=== PATIENT | female | born 1990 | race Caucasian/White ===

== ENCOUNTER 2018-12-05 12:45 | Emergency (ER) | payer MEDICAID ==
[~2018-12-05] VITALS: Ht 149.9 cm; Wt 63.0 kg
[~2018-12-05 12:45] MED LIST: ONDA4TAB6 PO; ONDA8TAB9 PO; PHEN-824 PO
[2018-12-05 13:32] LABS: BASOPHILS # (AUTO) 0.1 X10'3 (0-0.2); BASOPHILS % (AUTO) 0.8 % (0-1); EOSINOPHILS # (AUTO) 0.4 X10'3 (0-0.9); EOSINOPHILS % (AUTO) 2.6 % (0-6); HEMATOCRIT 29.7 % (35.0-45.0); HEMOGLOBIN 9.4 g/dl (12.0-16.0); LYMPHOCYTES # (AUTO) 2.9 X10'3 (1.1-4.8); LYMPHOCYTES % (AUTO) 19.9 % (21-51); MEAN CORPUSCULAR HEMOGLOBIN 24.9 PG (27.0-31.0); MEAN CORPUSCULAR HGB CONC 31.6 g/dL (33.0-36.5); MEAN CORPUSCULAR VOLUME 78.8 FL (78-98); MEAN PLATELET VOLUME 7.3 FL (7.4-10.4); MONOCYTES # (AUTO) 1.4 X10'3 (0-0.9); MONOCYTES % (AUTO) 9.8 % (2-12); NEUTROPHILS # (AUTO) 9.7 X10'3 (1.8-7.7); NEUTROPHILS % (AUTO) 66.9 % (42-75); PLATELET COUNT 591 X10'3 (140-440); RED BLOOD COUNT 3.77 X10'6 (4.20-5.60); RED CELL DISTRIBUTION WIDTH 18.2 % (11.5-14.5); WHITE BLOOD COUNT 14.5 X10'3 (4.5-11.0)
[2018-12-05 13:53] LABS: INR 2.8 INR; PARTIAL THROMBOPLASTIN TIME 53 SECONDS (22-32); PROTHROMBIN TIME 26.6 SECONDS (9.0-12.0)
--- NOTE | 2018-12-05 14:06 | NUR ---
PATIENT LWOBS. CALLED PATIENT TO RETURN TO ER DUE TO ABNORMAL LABS. NO ANSWER. CALLED PATIENTS MOTHER WHO STATES SHE THINKS SHE IS STAYING AT THE [facility]IS[facility] [place] [facility]. PATIENTS MOTHER STATED SHE WOULD TRY TO FIND HER.
--- NOTE | 2018-12-05 16:06 | NUR ---
PATIENT STILL C/O 8/10 CHEST PAIN,OPPEZZO AWARE,PROVIDER OFFERED TYLENOL BUT PATIENT REFUSED.
[2018-12-05 16:18] VITALS: BP 102/78
[2018-12-05 16:23] LABS: URINE HCG NEGATIVE (NEG)
[2018-12-05 16:30] LABS: CLARITY,URINE SLIGHTLY CLOUDY (Clear); COLOR,URINE YELLOW (Yellow); GLUCOSE, URINE NEGATIVE (Neg); KETONES,URINE NEGATIVE (Neg); LEUKOCYTE ESTERASE ,URINE NEGATIVE (Neg); NITRITES, URINE NEGATIVE (Neg); OCCULT BLOOD,URINE NEGATIVE (Neg); PH,URINE 5.5 (4.8-8.0); PROTEIN,URINE NEGATIVE (Neg); UROBILINOGEN,URINE 0.2 E.U/dL (0.2-1.0)
[2018-12-05 16:33] LABS: UA COLLECTION TYPE CLN CATCH MIDSTREAM
[2018-12-05 16:38] LABS: BACTERIA,URINE FEW /HPF (Neg); MUCUS STRANDS FEW /LPF (Neg); RBC,URINE 0-2 /HPF (0-2); SQUAMOUS EPITHELIAL CELL,UR MODERATE /LPF (FEW); TRICHOMONAS,URINE FEW /HPF (NEGATIVE)
== END 2018-12-05 16:21 | disposition home or self-care (01) ==
LOC: ER 12:45
DX: D72.829 Elevated white blood cell count, unspecified (principal); R07.89 Other chest pain; R06.02 Shortness of breath; K21.9 Gastro-esophageal reflux disease without esophagitis; F12.90 Cannabis use, unspecified, uncomplicated; F15.90 Other stimulant use, unspecified, uncomplicated; Z86.73 Personal history of transient ischemic attack (TIA), and cerebral infarction without residual deficits
CPT/HCPCS: 36415; 71045; 81001; 81025; 83605; 83880; 84145; 84484; 85025; 85610; 85730; 87040; 87088; 93005; 99284

== ENCOUNTER 2019-12-27 01:33 | Emergency (ER) | payer MEDICAID ==
[~2019-12-27] VITALS: Ht 149.9 cm; Wt 65.0 kg
[2019-12-27 01:33] VITALS: BP 141/95
--- NOTE | 2019-12-27 01:38 | NUR ---
Thom, shawapro,metoprolol, coumadin for mitral valve replacement 2019
[2019-12-27] MEDS ORDERED: AMOX500C2 PO (02:11)
[2019-12-27] MEDS ORDERED: HYDR-4383 PO (02:12)
[2019-12-27] MEDS ORDERED: ketorolac trometh inj. 60 MG/2 ML VIAL IM ONE (02:15)
== END 2019-12-27 02:02 | disposition home or self-care (01) ==
LOC: ER 01:33
DX: L89.819 Pressure ulcer of head, unspecified stage (principal); R20.2 Paresthesia of skin; R53.1 Weakness; K21.9 Gastro-esophageal reflux disease without esophagitis; F12.90 Cannabis use, unspecified, uncomplicated; F15.90 Other stimulant use, unspecified, uncomplicated; F11.90 Opioid use, unspecified, uncomplicated; Z86.73 Personal history of transient ischemic attack (TIA), and cerebral infarction without residual deficits; Z72.89 Other problems related to lifestyle; Z79.899 Other long term (current) drug therapy
CPT/HCPCS: 99282

== ENCOUNTER 2020-01-12 00:07 | Emergency (ER) | payer MEDICAID ==
[~2020-01-12] VITALS: Ht 149.9 cm; Wt 68.2 kg
[2020-01-12 00:31] LABS: CLARITY,URINE CLOUDY (Clear); COLOR,URINE AMBER (Yellow); GLUCOSE, URINE NEGATIVE (Neg); KETONES,URINE 15 mg/dl (Neg); LEUKOCYTE ESTERASE ,URINE TRACE (Neg); NITRITES, URINE NEGATIVE (Neg); OCCULT BLOOD,URINE LARGE (Neg); PH,URINE 6.5 (4.8-8.0); PROTEIN,URINE 100 mg/dl (Neg); URINE HCG NEGATIVE (NEG)
[2020-01-12 00:38] LABS: UA COLLECTION TYPE CLN CATCH MIDSTREAM
[2020-01-12 00:41] LABS: BACTERIA,URINE NONE SEEN /HPF (Neg); RBC,URINE TNTC /HPF (0-2); WBC,URINE 0-4 /HPF (0-4)
[2020-01-12 00:42] LABS: SQUAMOUS EPITHELIAL CELL,UR FEW /LPF (FEW)
[2020-01-12 01:00] LABS: EOSINOPHILS # (AUTO) 0.1 X10'3 (0-0.9); MEAN CORPUSCULAR VOLUME 82.3 FL (78-98); MONOCYTES # (AUTO) 1.7 X10'3 (0-0.9); RED CELL DISTRIBUTION WIDTH 18.5 % (11.5-14.5)
[2020-01-12 01:01] LABS: BASOPHILS % (AUTO) 0.2 % (0-1); EOSINOPHILS % (AUTO) 1.2 % (0-6); HEMOGLOBIN 10.5 g/dl (12.0-16.0); LYMPHOCYTES # (AUTO) 0.9 X10'3 (1.1-4.8); LYMPHOCYTES % (AUTO) 8.6 % (21-51); MEAN CORPUSCULAR HGB CONC 32.8 g/dL (33.0-36.5); MEAN PLATELET VOLUME 8.9 FL (7.4-10.4); MONOCYTES % (AUTO) 15.9 % (2-12); NEUTROPHILS % (AUTO) 74.1 % (42-75); PLATELET COUNT 271 X10'3 (140-440); RED BLOOD COUNT 3.89 X10'6 (4.20-5.60); WHITE BLOOD COUNT 10.7 X10'3 (4.5-11.0)
[2020-01-12 01:12] LABS: ALANINE AMINOTRANSFERASE 9 U/L (12-78); ALBUMIN 2.6 G/DL (3.4-5.0); ALBUMIN/GLOBULIN RATIO 0.7 (1.1-1.5); ALKALINE PHOSPHATASE 82 IU/L (46-116); ANION GAP 5 (8-16); ASPARTATE AMINO TRANSFERASE 16 U/L (10-37); BILIRUBIN,TOTAL 0.3 MG/DL (0.1-1.0); BLOOD UREA NITROGEN 20 MG/DL (7-18); BUN/CREATININE RATIO 16.8 (6.6-38.0); CALCIUM 8.3 MG/DL (8.5-10.1); CHLORIDE 101 MMOL/L (99-107); CREATININE 1.19 MG/DL (0.40-0.90); GLUCOSE 99 MG/DL (70-104); POTASSIUM 3.9 MMOL/L (3.5-5.1); SODIUM 131 MMOL/L (135-145); TOTAL CARBON DIOXIDE 25.3 MMOL/L (24-32); TOTAL PROTEIN 6.2 G/DL (6.4-8.2); eGFR 53 ML/MIN
[2020-01-12 01:25] LABS: TOTAL CELLS COUNTED 100
[2020-01-12 01:28] LABS: ANISOCYTOSIS 1+; ELLIPTOCYTES FEW; PLATELET ESTIMATE NORMAL
[2020-01-12 02:03] LABS: PARTIAL THROMBOPLASTIN TIME 112 SECONDS (22-32)
[2020-01-12] MEDS ORDERED: phytonadione 10 MG/1 ML amp SQ ONE (02:15)
[2020-01-12 02:30] VITALS: BP 102/55
[2020-01-12] MEDS ORDERED: ACET-3068 PO (18:29)
[2020-01-12] MEDS ORDERED: CEPH500C5 PO (18:30)
== END 2020-01-12 02:40 | disposition home or self-care (01) ==
LOC: ER 00:07
DX: R79.1 Abnormal coagulation profile (principal); R31.9 Hematuria, unspecified; G43.909 Migraine, unspecified, not intractable, without status migrainosus; F17.200 Nicotine dependence, unspecified, uncomplicated; F12.90 Cannabis use, unspecified, uncomplicated; K21.9 Gastro-esophageal reflux disease without esophagitis; Z86.73 Personal history of transient ischemic attack (TIA), and cerebral infarction without residual deficits; Z72.89 Other problems related to lifestyle; Z79.899 Other long term (current) drug therapy
CPT/HCPCS: 36415; 70450; 80053; 81001; 81025; 85025; 85610; 85730; 87088; 96372; 99284; J3430

== ENCOUNTER 2020-01-12 12:25 | Emergency (ER) | payer MEDICAID ==
[~2020-01-12] VITALS: Ht 149.9 cm; Wt 65.4 kg
[2020-01-12 13:18] LABS: BASOPHILS % (AUTO) 0.4 % (0-1); EOSINOPHILS # (AUTO) 0.1 X10'3 (0-0.9); EOSINOPHILS % (AUTO) 0.9 % (0-6); HEMATOCRIT 31.5 % (35.0-45.0); HEMOGLOBIN 10.3 g/dl (12.0-16.0); LYMPHOCYTES # (AUTO) 0.8 X10'3 (1.1-4.8); LYMPHOCYTES % (AUTO) 7.1 % (21-51); MEAN CORPUSCULAR HEMOGLOBIN 26.7 PG (27.0-31.0); MEAN CORPUSCULAR HGB CONC 32.7 g/dL (33.0-36.5); MEAN CORPUSCULAR VOLUME 81.6 FL (78-98); MEAN PLATELET VOLUME 8.9 FL (7.4-10.4); MONOCYTES # (AUTO) 1.4 X10'3 (0-0.9); MONOCYTES % (AUTO) 13.2 % (2-12); NEUTROPHILS # (AUTO) 8.3 X10'3 (1.8-7.7); NEUTROPHILS % (AUTO) 78.4 % (42-75); PLATELET COUNT 293 X10'3 (140-440); RED BLOOD COUNT 3.85 X10'6 (4.20-5.60); RED CELL DISTRIBUTION WIDTH 18.7 % (11.5-14.5); WHITE BLOOD COUNT 10.6 X10'3 (4.5-11.0)
[2020-01-12 13:33] LABS: ALANINE AMINOTRANSFERASE 7 U/L (12-78); ALBUMIN 2.3 G/DL (3.4-5.0); ALBUMIN/GLOBULIN RATIO 0.6 (1.1-1.5); ALKALINE PHOSPHATASE 89 IU/L (46-116); ANION GAP 6 (8-16); ASPARTATE AMINO TRANSFERASE 13 U/L (10-37); BILIRUBIN,TOTAL 0.2 MG/DL (0.1-1.0); BLOOD UREA NITROGEN 15 MG/DL (7-18); BUN/CREATININE RATIO 19.2 (6.6-38.0); CALCIUM 7.9 MG/DL (8.5-10.1); CHLORIDE 102 MMOL/L (99-107); CREATININE 0.78 MG/DL (0.40-0.90); GLUCOSE 120 MG/DL (70-104); POTASSIUM 3.9 MMOL/L (3.5-5.1); SODIUM 134 MMOL/L (135-145); TOTAL CARBON DIOXIDE 25.7 MMOL/L (24-32); eGFR 87 ML/MIN
[2020-01-12 13:56] LABS: ANISOCYTOSIS 2+; ELLIPTOCYTES FEW; PLATELET ESTIMATE NORMAL; SCHISTOCYTES FEW; TOTAL CELLS COUNTED 100
[2020-01-12] MEDS ORDERED: phytonadione 10 MG/1 ML amp PO ONE (16:15)
--- NOTE | 2020-01-12 16:28 | NUR ---
creative technologist at bedside, patient asleep, no signs of distress noted. Addendum: 01/12/20 at 1628 by LARISA exercise equipment repair technician.
[2020-01-12] MEDS: HYDROcodone/acetaminophen 10/325mg tab PO ONE ×2 (16:29→16:30)
[2020-01-12] MEDS ORDERED: ACET-3068 PO (18:29)
[2020-01-12] MEDS ORDERED: CEPH500C5 PO (18:30)
[2020-01-12] MEDS ORDERED: HYDROcodone/acetaminophen 10/325mg tab PO ONE (18:35)
--- NOTE | 2020-01-12 18:42 | NUR ---
Note artie in EDM - 01/12/[address] tsai updated that pts accucheck is 62, verbal received for 1 amp of d50 x1 now. last accuehcke at 1744 = 72.
[2020-01-12] MEDS ORDERED: dextrose 50%-water 50ml dispensing syringe IV ONE (18:45)
[2020-01-12 19:47] VITALS: BP 101/62
== END 2020-01-12 19:45 | disposition home or self-care (01) ==
LOC: ER 12:26
DX: S50.11XA Contusion of right forearm, initial encounter (principal); D68.9 Coagulation defect, unspecified; R79.9 Abnormal finding of blood chemistry, unspecified; M25.512 Pain in left shoulder; G43.909 Migraine, unspecified, not intractable, without status migrainosus; I25.10 Atherosclerotic heart disease of native coronary artery without angina pectoris; I25.2 Old myocardial infarction; J44.9 Chronic obstructive pulmonary disease, unspecified; K21.9 Gastro-esophageal reflux disease without esophagitis; F17.200 Nicotine dependence, unspecified, uncomplicated; F12.90 Cannabis use, unspecified, uncomplicated; F11.90 Opioid use, unspecified, uncomplicated; Z86.73 Personal history of transient ischemic attack (TIA), and cerebral infarction without residual deficits; Z79.899 Other long term (current) drug therapy; X58.XXXA Exposure to other specified factors, initial encounter; Y93.89 Activity, other specified; Y92.89 Other specified places as the place of occurrence of the external cause; Y99.8 Other external cause status
CPT/HCPCS: 36415; 73090; 80053; 85025; 85610; 93971; 99285; J3430

== ENCOUNTER 2020-04-10 06:35 | Emergency (ER) | payer MEDICAID ==
[~2020-04-10] VITALS: Ht 149.9 cm; Wt 67.7 kg
[~2020-04-10 06:35] MED LIST changes: +CEPH500C5 PO
[2020-04-10 07:33] VITALS: BP 133/79
== END 2020-04-10 07:34 | disposition home or self-care (01) ==
LOC: ER 06:36
DX: F15.90 Other stimulant use, unspecified, uncomplicated (principal); F11.90 Opioid use, unspecified, uncomplicated; G43.909 Migraine, unspecified, not intractable, without status migrainosus; I25.10 Atherosclerotic heart disease of native coronary artery without angina pectoris; I25.2 Old myocardial infarction; J44.9 Chronic obstructive pulmonary disease, unspecified; K21.9 Gastro-esophageal reflux disease without esophagitis; F12.90 Cannabis use, unspecified, uncomplicated; Z86.73 Personal history of transient ischemic attack (TIA), and cerebral infarction without residual deficits; Z79.899 Other long term (current) drug therapy
CPT/HCPCS: 99281

== ENCOUNTER 2020-05-08 18:32 | Emergency (ER) | payer MEDICAID ==
[~2020-05-08] VITALS: Ht 149.9 cm; Wt 63.6 kg
[2020-05-08 19:06] LABS: BASOPHILS # (AUTO) 0.1 X10'3 (0-0.2); BASOPHILS % (AUTO) 0.4 % (0-1); EOSINOPHILS # (AUTO) 0.2 X10'3 (0-0.9); EOSINOPHILS % (AUTO) 0.9 % (0-6); HEMATOCRIT 40.4 % (35.0-45.0); HEMOGLOBIN 13.1 g/dl (12.0-16.0); LYMPHOCYTES # (AUTO) 2.1 X10'3 (1.1-4.8); LYMPHOCYTES % (AUTO) 10.8 % (21-51); MEAN CORPUSCULAR HEMOGLOBIN 24.4 PG (27.0-31.0); MEAN CORPUSCULAR HGB CONC 32.3 g/dL (33.0-36.5); MEAN CORPUSCULAR VOLUME 75.4 FL (78-98); MONOCYTES # (AUTO) 1.6 X10'3 (0-0.9); MONOCYTES % (AUTO) 8.1 % (2-12); NEUTROPHILS # (AUTO) 15.6 X10'3 (1.8-7.7); NEUTROPHILS % (AUTO) 79.8 % (42-75); PLATELET COUNT 403 X10'3 (140-440); RED BLOOD COUNT 5.36 X10'6 (4.20-5.60); RED CELL DISTRIBUTION WIDTH 17.6 % (11.5-14.5); WHITE BLOOD COUNT 19.5 X10'3 (4.5-11.0)
[2020-05-08] MEDS ORDERED: normal saline 1000ml 1,000 ML IV ONE (19:10)
[2020-05-08] MEDS ORDERED: ondansetron/PF 4mg/2ml inj IV ONE (19:10)
[2020-05-08] MEDS ORDERED: ketorolac trometh. 30mg/ml inj. IV ONE (19:10)
[2020-05-08] MEDS ORDERED: acetaminophen 325mg tablet PO ONE (19:10)
[2020-05-08 19:17] LABS: CLARITY,URINE CLOUDY (Clear); COLOR,URINE YELLOW (Yellow); GLUCOSE, URINE NEGATIVE (Neg); KETONES,URINE TRACE mg/dl (Neg); LEUKOCYTE ESTERASE ,URINE MODERATE (Neg); NITRITES, URINE NEGATIVE (Neg); OCCULT BLOOD,URINE SMALL (Neg); PROTEIN,URINE TRACE mg/dl (Neg); URINE HCG NEGATIVE (NEG); UROBILINOGEN,URINE 0.2 E.U/dL (0.2-1.0)
[2020-05-08 19:22] LABS: UA COLLECTION TYPE CLN CATCH MIDSTREAM
--- NOTE | 2020-05-08 19:27 | NUR ---
pt to ct with projects manager via wheelchair
[2020-05-08 19:30] LABS: WBC,URINE 50-100 /HPF (0-4)
[2020-05-08 19:30] LABS: ALANINE AMINOTRANSFERASE 15 U/L (12-78); ALBUMIN 3.4 G/DL (3.4-5.0); ALKALINE PHOSPHATASE 116 IU/L (46-116); ANION GAP 9 (8-16); ASPARTATE AMINO TRANSFERASE 28 U/L (10-37); BILIRUBIN,TOTAL 0.4 MG/DL (0.1-1.0); BLOOD UREA NITROGEN 13 MG/DL (7-18); BUN/CREATININE RATIO 11.4 (6.6-38.0); CALCIUM 8.8 MG/DL (8.5-10.1); CHLORIDE 101 MMOL/L (99-107); CREATININE 1.14 MG/DL (0.40-0.90); GLUCOSE 86 MG/DL (70-104); LIPASE 322 U/L (73-393); POTASSIUM 3.6 MMOL/L (3.5-5.1); SODIUM 136 MMOL/L (135-145); TOTAL CARBON DIOXIDE 25.9 MMOL/L (24-32); TOTAL PROTEIN 6.8 G/DL (6.4-8.2); eGFR 56 ML/MIN
[2020-05-08 19:31] LABS: BACTERIA,URINE 4+ /HPF (Neg); RBC,URINE 0-2 /HPF (0-2); SQUAMOUS EPITHELIAL CELL,UR MANY /LPF (FEW)
[2020-05-08 19:41] LABS: ANISOCYTOSIS 1+; ELLIPTOCYTES 1+; MICROCYTOSIS 1+; PLATELET ESTIMATE NORMAL; SCHISTOCYTES FEW
[2020-05-08] MEDS ORDERED: metroNIDAZOLE-Flagyl 500mg/NS 100 ML IV STA (20:34)
[2020-05-08] MEDS ORDERED: ciprofloxacin lact 400MG/200ML 200 ML IV ONE (20:35)
[2020-05-08] MEDS ORDERED: METR-159 PO (20:37)
[2020-05-08] MEDS ORDERED: CIPR-230 PO (20:37)
[2020-05-08] MEDS ORDERED: ACET-812 PO (20:38)
[2020-05-08] MEDS ORDERED: MELO-100 PO (20:38)
[2020-05-08 20:50] LABS: URINE AMPHETAMINE SCREEN NEGATIVE (Neg); URINE BARBITUATE SCREEN NEGATIVE (Neg); URINE BENZODIAZEPINES SCREEN POSITIVE (Neg); URINE CANNABINOID SCREEN NEGATIVE (Neg); URINE COCAINE SCREEN NEGATIVE (Neg); URINE METHADONE SCREEN NEGATIVE (Neg); URINE OPIATE SCREEN POSITIVE (Neg); URINE PHENCYCLIDINE SCREEN NEGATIVE (Neg)
--- NOTE | 2020-05-08 21:27 | NUR ---
assisting RN with pt care, pt is sleeping, resp even and unlabored, easily arouseable, started IV antibiotics
[2020-05-08 22:48] VITALS: BP 110/80
== END 2020-05-08 22:50 | disposition home or self-care (01) ==
LOC: ER 18:32
DX: K52.9 Noninfective gastroenteritis and colitis, unspecified (principal); N39.0 Urinary tract infection, site not specified; G43.909 Migraine, unspecified, not intractable, without status migrainosus; I25.10 Atherosclerotic heart disease of native coronary artery without angina pectoris; I25.2 Old myocardial infarction; J44.9 Chronic obstructive pulmonary disease, unspecified; K21.9 Gastro-esophageal reflux disease without esophagitis; F12.90 Cannabis use, unspecified, uncomplicated; F15.90 Other stimulant use, unspecified, uncomplicated; F11.90 Opioid use, unspecified, uncomplicated; Z86.73 Personal history of transient ischemic attack (TIA), and cerebral infarction without residual deficits; Z98.890 Other specified postprocedural states; Z79.899 Other long term (current) drug therapy
CPT/HCPCS: 36415; 74176; 76700; 80053; 80305; 81001; 81025; 83690; 84145; 85008; 85025; 96361; 96365; 96368; 96375; 99285; J0744; J1885; J2405; J3490; J7030; 96366

== ENCOUNTER 2020-07-04 15:19 | Emergency (ER) | payer MEDICAID ==
[~2020-07-04] VITALS: Ht 149.9 cm; Wt 68.2 kg
[~2020-07-04 15:19] MED LIST changes: +ACET-812 PO; +MELO-100 PO
[2020-07-04 16:12] LABS: BASOPHILS # (AUTO) 0.1 X10'3 (0-0.2); BASOPHILS % (AUTO) 0.4 % (0-1); EOSINOPHILS # (AUTO) 0.6 X10'3 (0-0.9); EOSINOPHILS % (AUTO) 3.9 % (0-6); HEMATOCRIT 41.6 % (35.0-45.0); HEMOGLOBIN 13.3 g/dl (12.0-16.0); LYMPHOCYTES # (AUTO) 1.9 X10'3 (1.1-4.8); LYMPHOCYTES % (AUTO) 11.6 % (21-51); MEAN CORPUSCULAR HEMOGLOBIN 24.7 PG (27.0-31.0); MEAN CORPUSCULAR HGB CONC 31.9 g/dL (33.0-36.5); MEAN CORPUSCULAR VOLUME 77.5 FL (78-98); MEAN PLATELET VOLUME 8.8 FL (7.4-10.4); MONOCYTES # (AUTO) 1.2 X10'3 (0-0.9); MONOCYTES % (AUTO) 7.2 % (2-12); NEUTROPHILS # (AUTO) 12.4 X10'3 (1.8-7.7); NEUTROPHILS % (AUTO) 76.9 % (42-75); PLATELET COUNT 361 X10'3 (140-440); RED BLOOD COUNT 5.37 X10'6 (4.20-5.60); RED CELL DISTRIBUTION WIDTH 20.5 % (11.5-14.5); WHITE BLOOD COUNT 16.1 X10'3 (4.5-11.0)
[2020-07-04 16:38] VITALS: BP_DIAS 70
[2020-07-04] MEDS ORDERED: albuterol 2.5 MG/3 ML nebule CONTNEB PRN (16:50)
[2020-07-04] MEDS ORDERED: magnesium 2GM in 50ml NS 50 ML IV ONE (16:50)
[2020-07-04] MEDS ORDERED: methylPREDNISolone sod succ 125mg/2ml vial IV ONE (16:50)
[2020-07-04 16:55] LABS: ALANINE AMINOTRANSFERASE 13 U/L (12-78); ALKALINE PHOSPHATASE 108 IU/L (46-116); ANION GAP 10 (8-16); ASPARTATE AMINO TRANSFERASE 23 U/L (10-37); BILIRUBIN,TOTAL 0.3 MG/DL (0.1-1.0); BLOOD UREA NITROGEN 13 MG/DL (7-18); BUN/CREATININE RATIO 11.9 (6.6-38.0); CALCIUM 9.1 MG/DL (8.5-10.1); CHLORIDE 99 MMOL/L (99-107); CREATININE 1.09 MG/DL (0.40-0.90); GLUCOSE 107 MG/DL (70-104); SODIUM 133 MMOL/L (135-145); TOTAL CARBON DIOXIDE 23.6 MMOL/L (24-32); TOTAL PROTEIN 8.2 G/DL (6.4-8.2); eGFR 59 ML/MIN
[2020-07-04 17:20] LABS: PHOSPHORUS 4.6 MG/DL (2.3-4.5)
[2020-07-04 17:31] LABS: PARTIAL THROMBOPLASTIN TIME 40 SECONDS (22-32)
[2020-07-04] MEDS ORDERED: normal saline 1000ML IV soln IVB ONE (17:55)
[2020-07-04] MEDS ORDERED: iohexol 350MG/ML 100ml bottle IV ONE (18:04)
[2020-07-04 19:15] LABS: ANISOCYTOSIS 3+; ELLIPTOCYTES FEW; PLATELET ESTIMATE NORMAL
[2020-07-04 20:24] VITALS: BP_SYST 118
[2020-07-04] MEDS ORDERED: azithromycin 250mg tablet PO ONE (20:30)
[2020-07-04] MEDS ORDERED: CefTRIAXone/D5W-Rocephin 1gm 50 ML IV ONE (20:30)
--- NOTE | 2020-07-05 09:22 | NUR ---
Patient called regarding discharge instructions stating that she was be prescribed prednisone and abx for lung infection. Upon looking through chart and through discharge instructions I noted that patient was not given any prescriptions or prescriptions were not called into her pharmacy. I spoke with Dr. Coughlin regarding this and he gave verbal orders to call prescriptions in for patient to patients preferred pharmacy with prednisone 20 mg 1 tablet daily for 5 days, Zpak at per usual dosing instructions of 500 mg (2 tablets) on day one then 250 mg (1 tablet) for the next 4 days, and advair 100/50 IH daily x1. Notified patient regarding this and all questions were answered, Patient requested prescription be called into [facility] on [address] [place]. Called prescription into [facility] [address].
== END 2020-07-04 21:15 | disposition home or self-care (01) ==
LOC: ER 15:19
DX: J45.901 Unspecified asthma with (acute) exacerbation (principal); R06.02 Shortness of breath; G43.909 Migraine, unspecified, not intractable, without status migrainosus; I25.10 Atherosclerotic heart disease of native coronary artery without angina pectoris; I25.2 Old myocardial infarction; K21.9 Gastro-esophageal reflux disease without esophagitis; F12.90 Cannabis use, unspecified, uncomplicated; F15.90 Other stimulant use, unspecified, uncomplicated; F11.90 Opioid use, unspecified, uncomplicated; Z86.73 Personal history of transient ischemic attack (TIA), and cerebral infarction without residual deficits; Z98.890 Other specified postprocedural states; Z79.2 Long term (current) use of antibiotics; Z79.899 Other long term (current) drug therapy
CPT/HCPCS: 36415; 71045; 71275; 80053; 83605; 83880; 84100; 84145; 84484; 85025; 85610; 85730; 87040; 87635; 93005; 94644; 96365; 96366; 96367; 96375; 99285; C9803; J0696; J2930; J3475; J7030; Q9967; 85008; 94640; 94760; A7015

== ENCOUNTER 2021-03-20 07:23 | Emergency (ER) | payer MEDICAID ==
[~2021-03-20] VITALS: Ht 149.9 cm; Wt 66.5 kg
[~2021-03-20 07:23] MED LIST changes: -CEPH500C5 PO
[2021-03-20] MEDS ORDERED: DOXYCYCLINE 100MG CAPSULE PO STA (08:20)
[2021-03-20] MEDS ORDERED: cephalexin 500mg capsule PO ONE (08:20)
[2021-03-20] MEDS ORDERED: CEPH-585 PO (08:23)
[2021-03-20] MEDS ORDERED: DOXY100C43 PO (08:23)
[2021-03-20 08:48] VITALS: BP 128/88
== END 2021-03-20 08:49 | disposition home or self-care (01) ==
LOC: ER 07:23
DX: L03.116 Cellulitis of left lower limb (principal); L02.415 Cutaneous abscess of right lower limb; F19.10 Other psychoactive substance abuse, uncomplicated; G43.909 Migraine, unspecified, not intractable, without status migrainosus; I25.10 Atherosclerotic heart disease of native coronary artery without angina pectoris; I25.2 Old myocardial infarction; J44.9 Chronic obstructive pulmonary disease, unspecified; K21.9 Gastro-esophageal reflux disease without esophagitis; F12.90 Cannabis use, unspecified, uncomplicated; F15.90 Other stimulant use, unspecified, uncomplicated; F11.90 Opioid use, unspecified, uncomplicated; Z86.73 Personal history of transient ischemic attack (TIA), and cerebral infarction without residual deficits; Z98.890 Other specified postprocedural states; Z79.2 Long term (current) use of antibiotics; Z79.899 Other long term (current) drug therapy
CPT/HCPCS: 76882; 99284

== ENCOUNTER → 2021-04-13 | Emergency (ER) | payer MEDICAID ==
[~2021-04-13] VITALS: Ht 149.9 cm; Wt 66.4 kg
[~2021-04-13] MED LIST changes: +CEPH-585 PO
[2021-04-13 14:53] VITALS: BP 125/84
--- NOTE | 2021-04-13 18:46 | NUR ---
Pt. not in lobby. Attempted to call with no answer and no ability to leave voice message.
--- NOTE | 2021-04-13 18:54 | NUR ---
2nd call out unsuccesful. Attempted to call alternate number.
== END | disposition left against medical advice (07) ==
LOC: ER 13:57
DX: T40.3X1A Poisoning by methadone, accidental (unintentional), initial encounter (principal); Z53.21 Procedure and treatment not carried out due to patient leaving prior to being seen by health care provider; Y92.89 Other specified places as the place of occurrence of the external cause
CPT/HCPCS: 93005

== ENCOUNTER 2021-07-28 11:09 | Emergency (ER) | payer MEDICAID | END 2021-07-28 12:33 | disposition left against medical advice (07) | LOC: ER 11:10 | DX: R05.8 Other specified cough (principal); Z53.21 Procedure and treatment not carried out due to patient leaving prior to being seen by health care provider ==

== ENCOUNTER 2021-08-06 13:09 | Emergency (ER) | payer MEDICAID ==
[~2021-08-06] VITALS: Ht 149.9 cm; Wt 61.4 kg
[2021-08-06 13:25] VITALS: BP 124/79
[2021-08-06] MEDS ORDERED: methadone 10mg tablet PO ONE (13:30)
[2021-08-06 13:55] LABS: BASOPHILS # (AUTO) 0.1 X10'3 (0-0.2); EOSINOPHILS # (AUTO) 0.2 X10'3 (0-0.9); EOSINOPHILS % (AUTO) 2.6 % (0-6); HEMATOCRIT 38.6 % (35.0-45.0); HEMOGLOBIN 12.6 g/dl (12.0-16.0); LYMPHOCYTES # (AUTO) 2.4 X10'3 (1.1-4.8); LYMPHOCYTES % (AUTO) 31.1 % (21-51); MEAN CORPUSCULAR HEMOGLOBIN 26.7 PG (27.0-31.0); MEAN CORPUSCULAR HGB CONC 32.5 g/dL (33.0-36.5); MEAN PLATELET VOLUME 8.5 FL (7.4-10.4); MONOCYTES # (AUTO) 0.8 X10'3 (0-0.9); MONOCYTES % (AUTO) 10.6 % (2-12); NEUTROPHILS # (AUTO) 4.2 X10'3 (1.8-7.7); NEUTROPHILS % (AUTO) 54.7 % (42-75); PLATELET COUNT 365 X10'3 (140-440); RED BLOOD COUNT 4.71 X10'6 (4.20-5.60); RED CELL DISTRIBUTION WIDTH 17.2 % (11.5-14.5); WHITE BLOOD COUNT 7.6 X10'3 (4.5-11.0)
== END 2021-08-06 14:54 | disposition home or self-care (01) ==
LOC: ER 13:09
DX: F11.23 Opioid dependence with withdrawal (principal); R07.89 Other chest pain; G43.909 Migraine, unspecified, not intractable, without status migrainosus; I25.10 Atherosclerotic heart disease of native coronary artery without angina pectoris; I25.2 Old myocardial infarction; J44.9 Chronic obstructive pulmonary disease, unspecified; K21.9 Gastro-esophageal reflux disease without esophagitis; F12.90 Cannabis use, unspecified, uncomplicated; F15.90 Other stimulant use, unspecified, uncomplicated; Z86.72 Personal history of thrombophlebitis; Z79.2 Long term (current) use of antibiotics; Z79.899 Other long term (current) drug therapy
CPT/HCPCS: 36415; 71045; 83880; 84484; 85025; 93005; 99285

== ENCOUNTER 2021-08-29 23:06 | Emergency (ER) | payer MEDICAID ==
[~2021-08-29] VITALS: Ht 149.9 cm; Wt 68.2 kg
[2021-08-29] MEDS ORDERED: iohexol 350MG/ML 100ml bottle IV ONE (23:48)
--- NOTE | 2021-08-29 23:49 | NUR ---
ASSUMED CARE OF PT. PT WILL BE SENT TO CT AND THEN ROOMED IN BED 11 WHERE I CAN PHYSICALLY ASSESS HER. FRIEND GAVE BRIEF REPORT ON PT PT IS IN CT SCAN.
--- NOTE | 2021-08-30 00:19 | NUR ---
PT BACK IN ROOM. PT DENIES ANY DIZZINESS OR LIGHTHEADEDNESS AT PRESENT.
[2021-08-30 00:56] LABS: BASOPHILS % (AUTO) 0.6 % (0-1); EOSINOPHILS # (AUTO) 0.3 X10'3 (0-0.9); EOSINOPHILS % (AUTO) 4.8 % (0-6); HEMATOCRIT 32.9 % (35.0-45.0); LYMPHOCYTES # (AUTO) 2.2 X10'3 (1.1-4.8); LYMPHOCYTES % (AUTO) 37.2 % (21-51); MEAN CORPUSCULAR HEMOGLOBIN 27.8 PG (27.0-31.0); MEAN CORPUSCULAR HGB CONC 33.6 g/dL (33.0-36.5); MEAN CORPUSCULAR VOLUME 82.9 FL (78-98); MEAN PLATELET VOLUME 8.8 FL (7.4-10.4); MONOCYTES # (AUTO) 0.9 X10'3 (0-0.9); MONOCYTES % (AUTO) 15.2 % (2-12); NEUTROPHILS # (AUTO) 2.4 X10'3 (1.8-7.7); NEUTROPHILS % (AUTO) 42.2 % (42-75); PLATELET COUNT 255 X10'3 (140-440); RED BLOOD COUNT 3.97 X10'6 (4.20-5.60); RED CELL DISTRIBUTION WIDTH 17.7 % (11.5-14.5); WHITE BLOOD COUNT 5.8 X10'3 (4.5-11.0)
[2021-08-30 01:14] LABS: ALANINE AMINOTRANSFERASE 17 U/L (12-78); ALBUMIN 2.8 G/DL (3.4-5.0); ALKALINE PHOSPHATASE 71 IU/L (46-116); ANION GAP 7 (8-16); ASPARTATE AMINO TRANSFERASE 30 U/L (10-37); BILIRUBIN,TOTAL 0.2 MG/DL (0.1-1.0); BLOOD UREA NITROGEN 16 MG/DL (7-18); BUN/CREATININE RATIO 21.9 (6.6-38.0); CALCIUM 8.2 MG/DL (8.5-10.1); CHLORIDE 103 MMOL/L (99-107); CREATININE 0.73 MG/DL (0.40-0.90); GLUCOSE 97 MG/DL (70-104); POTASSIUM 3.9 MMOL/L (3.5-5.1); SODIUM 138 MMOL/L (135-145); TOTAL CARBON DIOXIDE 27.9 MMOL/L (24-32); TOTAL PROTEIN 5.7 G/DL (6.4-8.2); eGFR > 90 ML/MIN
[2021-08-30 01:35] LABS: ANISOCYTOSIS 1+; PLATELET ESTIMATE NORMAL; TOTAL CELLS COUNTED 100
[2021-08-30 01:36] LABS: BURR CELLS FEW; ELLIPTOCYTES FEW; TEAR DROP CELLS FEW
[2021-08-30 01:47] VITALS: BP 102/76
[2021-08-30] MEDS ORDERED: AMOX-117 PO (03:38)
[2021-08-30 04:23] LABS: URINE AMPHETAMINE SCREEN POSITIVE (Neg); URINE BARBITUATE SCREEN NEGATIVE (Neg); URINE BENZODIAZEPINES SCREEN NEGATIVE (Neg); URINE CANNABINOID SCREEN NEGATIVE (Neg); URINE COCAINE SCREEN NEGATIVE (Neg); URINE METHADONE SCREEN NEGATIVE (Neg); URINE OPIATE SCREEN NEGATIVE (Neg); URINE PHENCYCLIDINE SCREEN NEGATIVE (Neg)
== END 2021-08-30 03:50 | disposition left against medical advice (07) ==
LOC: ER 23:08
DX: R55 Syncope and collapse (principal); I05.9 Rheumatic mitral valve disease, unspecified; R07.89 Other chest pain; R06.02 Shortness of breath; G43.909 Migraine, unspecified, not intractable, without status migrainosus; I25.10 Atherosclerotic heart disease of native coronary artery without angina pectoris; I25.2 Old myocardial infarction; J44.9 Chronic obstructive pulmonary disease, unspecified; K21.9 Gastro-esophageal reflux disease without esophagitis; F12.90 Cannabis use, unspecified, uncomplicated; F15.90 Other stimulant use, unspecified, uncomplicated; F11.90 Opioid use, unspecified, uncomplicated; Z86.73 Personal history of transient ischemic attack (TIA), and cerebral infarction without residual deficits; Z98.890 Other specified postprocedural states; Z79.2 Long term (current) use of antibiotics; Z79.899 Other long term (current) drug therapy
CPT/HCPCS: 36415; 70450; 71045; 71275; 80053; 80305; 83605; 83880; 84484; 85007; 85025; 93005; 99285; Q9967

== ENCOUNTER 2022-07-08 17:07 | Emergency (ER) | payer MEDICAID ==
[~2022-07-08] VITALS: Ht 149.9 cm; Wt 64.0 kg
[~2022-07-08 17:07] MED LIST changes: -CEPH-585 PO
[2022-07-08 17:20] VITALS: BP 130/89
[2022-07-08 19:13] LABS: BASOPHILS # (AUTO) 0.1 X10'3 (0-0.2); BASOPHILS % (AUTO) 0.5 % (0-1); EOSINOPHILS # (AUTO) 0.4 X10'3 (0-0.9); EOSINOPHILS % (AUTO) 2.7 % (0-6); HEMATOCRIT 46.7 % (35.0-45.0); HEMOGLOBIN 15.1 g/dl (12.0-16.0); LYMPHOCYTES # (AUTO) 2.6 X10'3 (1.1-4.8); LYMPHOCYTES % (AUTO) 19.8 % (21-51); MEAN CORPUSCULAR HEMOGLOBIN 27.9 PG (27.0-31.0); MEAN CORPUSCULAR HGB CONC 32.3 g/dL (33.0-36.5); MEAN CORPUSCULAR VOLUME 86.2 FL (78-98); MEAN PLATELET VOLUME 8.7 FL (7.4-10.4); MONOCYTES # (AUTO) 0.8 X10'3 (0-0.9); MONOCYTES % (AUTO) 6.3 % (2-12); NEUTROPHILS # (AUTO) 9.1 X10'3 (1.8-7.7); NEUTROPHILS % (AUTO) 70.7 % (42-75); PLATELET COUNT 304 X10'3 (140-440); RED BLOOD COUNT 5.41 X10'6 (4.20-5.60); RED CELL DISTRIBUTION WIDTH 14.4 % (11.5-14.5); WHITE BLOOD COUNT 12.9 X10'3 (4.5-11.0)
[2022-07-08 19:25] LABS: APTT 29 SECONDS (22-32)
[2022-07-08 19:29] LABS: ALANINE AMINOTRANSFERASE 25 U/L (12-78); ALBUMIN 3.6 G/DL (3.4-5.0); ALBUMIN/GLOBULIN RATIO 1.1 (1.1-1.5); ALKALINE PHOSPHATASE 104 IU/L (46-116); ANION GAP 6 (8-16); ASPARTATE AMINO TRANSFERASE 34 U/L (10-37); BILIRUBIN,TOTAL 0.2 MG/DL (0.1-1.0); BLOOD UREA NITROGEN 10 MG/DL (7-18); BUN/CREATININE RATIO 11.5 (6.6-38.0); CALCIUM 9.2 MG/DL (8.5-10.1); CHLORIDE 103 MMOL/L (99-107); CREATININE 0.87 MG/DL (0.40-0.90); GLUCOSE 99 MG/DL (70-104); POTASSIUM 4.9 MMOL/L (3.5-5.1); SODIUM 140 MMOL/L (135-145); TOTAL CARBON DIOXIDE 30.7 MMOL/L (24-32); eGFR 75 ML/MIN
== END 2022-07-09 01:31 | disposition left against medical advice (07) ==
LOC: ER 17:08
DX: R51.9 Headache, unspecified (principal); Z53.21 Procedure and treatment not carried out due to patient leaving prior to being seen by health care provider
CPT/HCPCS: 36415; 70450; 80053; 85025; 85610; 85730; 93005

== ENCOUNTER 2022-08-23 20:35 | Emergency (ER) | payer MEDICAID ==
[~2022-08-23] VITALS: Ht 149.9 cm; Wt 71.8 kg
[2022-08-23 21:22] LABS: BASOPHILS # (AUTO) 0.1 X10'3 (0-0.2); BASOPHILS % (AUTO) 0.8 % (0-1); EOSINOPHILS # (AUTO) 0.4 X10'3 (0-0.9); EOSINOPHILS % (AUTO) 3.5 % (0-6); HEMATOCRIT 40.5 % (35.0-45.0); HEMOGLOBIN 13.6 g/dl (12.0-16.0); LYMPHOCYTES # (AUTO) 3.4 X10'3 (1.1-4.8); LYMPHOCYTES % (AUTO) 34.5 % (21-51); MEAN CORPUSCULAR HEMOGLOBIN 29.3 PG (27.0-31.0); MEAN CORPUSCULAR HGB CONC 33.7 g/dL (33.0-36.5); MEAN CORPUSCULAR VOLUME 87.1 FL (78-98); MEAN PLATELET VOLUME 8.7 FL (7.4-10.4); MONOCYTES # (AUTO) 0.8 X10'3 (0-0.9); MONOCYTES % (AUTO) 8.1 % (2-12); NEUTROPHILS # (AUTO) 5.3 X10'3 (1.8-7.7); NEUTROPHILS % (AUTO) 53.1 % (42-75); PLATELET COUNT 308 X10'3 (140-440); RED BLOOD COUNT 4.65 X10'6 (4.20-5.60); RED CELL DISTRIBUTION WIDTH 14.5 % (11.5-14.5)
[2022-08-23 21:45] LABS: ALANINE AMINOTRANSFERASE 16 U/L (12-78); ALBUMIN 3.4 G/DL (3.4-5.0); ALKALINE PHOSPHATASE 89 IU/L (46-116); ANION GAP 4 (8-16); ASPARTATE AMINO TRANSFERASE 25 U/L (10-37); BILIRUBIN,TOTAL 0.3 MG/DL (0.1-1.0); BLOOD UREA NITROGEN 16 MG/DL (7-18); BUN/CREATININE RATIO 9.9 (6.6-38.0); CALCIUM 8.6 MG/DL (8.5-10.1); CHLORIDE 103 MMOL/L (99-107); CREATININE 1.61 MG/DL (0.40-0.90); GLUCOSE 96 MG/DL (70-104); POTASSIUM 4.2 MMOL/L (3.5-5.1); SODIUM 137 MMOL/L (135-145); TOTAL CARBON DIOXIDE 29.7 MMOL/L (24-32); TOTAL PROTEIN 6.7 G/DL (6.4-8.2); eGFR 37 ML/MIN
[2022-08-23] MEDS ORDERED: normal saline 1000ml 500 ML IV ONE (23:00)
[2022-08-24 00:34] LABS: URINE HCG NEGATIVE (NEG)
[2022-08-24 03:16] VITALS: BP 112/67
== END 2022-08-24 03:19 | disposition home or self-care (01) ==
LOC: ER 20:36
DX: S30.1XXA Contusion of abdominal wall, initial encounter (principal); J44.9 Chronic obstructive pulmonary disease, unspecified; K21.9 Gastro-esophageal reflux disease without esophagitis; I11.9 Hypertensive heart disease without heart failure; F12.10 Cannabis abuse, uncomplicated; F15.10 Other stimulant abuse, uncomplicated; Z79.899 Other long term (current) drug therapy; W19.XXXA Unspecified fall, initial encounter; Y93.89 Activity, other specified; Y92.89 Other specified places as the place of occurrence of the external cause; Y99.8 Other external cause status
CPT/HCPCS: 36415; 71045; 74176; 80053; 81025; 83735; 83880; 84484; 85025; 85610; 93005; 96360; 99285; J7030

== ENCOUNTER 2022-10-06 18:43 | Emergency (ER) | payer MEDICAID ==
[~2022-10-06] VITALS: Ht 149.9 cm; Wt 72.7 kg
[2022-10-06 18:55] VITALS: BP 126/77
[2022-10-06] MEDS ORDERED: amox tr/potassium clavulanate 500mg/125mg TAB PO ONE (20:30)
[2022-10-06] MEDS ORDERED: acetaminophen 325mg tablet PO ONE (20:30)
[2022-10-06] MEDS ORDERED: AMOX-419 PO (20:34)
[2022-10-06] MEDS ORDERED: TRAM1TAB7 PO (20:34)
[2022-10-06] MEDS ORDERED: XYL25J TOP (20:50)
[2022-10-06] MEDS ORDERED: LIDOcaine Viscous 15ml cup MM ONE (20:55)
== END 2022-10-06 21:41 | disposition home or self-care (01) ==
LOC: ER 18:43
DX: K08.89 Other specified disorders of teeth and supporting structures (principal); G43.909 Migraine, unspecified, not intractable, without status migrainosus; I25.10 Atherosclerotic heart disease of native coronary artery without angina pectoris; I25.2 Old myocardial infarction; J44.9 Chronic obstructive pulmonary disease, unspecified; K21.9 Gastro-esophageal reflux disease without esophagitis; F12.90 Cannabis use, unspecified, uncomplicated; F15.90 Other stimulant use, unspecified, uncomplicated; F11.90 Opioid use, unspecified, uncomplicated; Z86.73 Personal history of transient ischemic attack (TIA), and cerebral infarction without residual deficits; Z98.890 Other specified postprocedural states; Z79.2 Long term (current) use of antibiotics; Z79.899 Other long term (current) drug therapy
CPT/HCPCS: 99284

== ENCOUNTER 2023-01-16 02:32 | Emergency (ER) | payer MEDICAID ==
[~2023-01-16] VITALS: Ht 149.9 cm; Wt 70.8 kg
[~2023-01-16 02:32] MED LIST changes: +XYL25J TOP
[2023-01-16 02:35] VITALS: BP 143/97
[2023-01-16] MEDS ORDERED: ondansetron 4mg rapidly disintigrating tab PO ONE (03:05)
[2023-01-16] MEDS ORDERED: amoxicillin 250mg capsule PO ONE (03:05)
[2023-01-16] MEDS ORDERED: AMOX500C2 PO (03:05)
[2023-01-16] MEDS ORDERED: traMADol 50MG tablet PO ONE (03:05)
[2023-01-17] MEDS ORDERED: HYDR-3965 PO ×2 (22:07)
[2023-01-17] MEDS ORDERED: AMOX-117 PO (22:07)
[2023-01-18] MEDS ORDERED: HYDR-3973 PO (15:36)
== END 2023-01-16 03:27 | disposition home or self-care (01) ==
LOC: ER 02:32
DX: K08.89 Other specified disorders of teeth and supporting structures (principal); G43.909 Migraine, unspecified, not intractable, without status migrainosus; J44.9 Chronic obstructive pulmonary disease, unspecified; K21.9 Gastro-esophageal reflux disease without esophagitis; F15.20 Other stimulant dependence, uncomplicated; F12.90 Cannabis use, unspecified, uncomplicated
CPT/HCPCS: 99284

== ENCOUNTER 2023-01-17 21:34 | Emergency (ER) | payer MEDICAID ==
[~2023-01-17] VITALS: Ht 149.9 cm; Wt 69.4 kg
[~2023-01-17 21:34] MED LIST changes: +AMOX500C2 PO
[2023-01-17 21:36] VITALS: BP 155/96
[2023-01-17] MEDS ORDERED: amox tr/potassium clavulanate 875/125mg TAB PO ONE (22:00)
[2023-01-17] MEDS ORDERED: HYDROcodone/acetaminophen 5mg/325mg tablet PO ONE (22:00)
[2023-01-17] MEDS ORDERED: HYDR-3965 PO ×2 (22:07)
[2023-01-17] MEDS ORDERED: AMOX-117 PO (22:07)
[2023-01-18] MEDS ORDERED: HYDR-3973 PO (15:36)
== END 2023-01-17 22:14 | disposition home or self-care (01) ==
LOC: ER 21:35
DX: K04.7 Periapical abscess without sinus (principal); G43.909 Migraine, unspecified, not intractable, without status migrainosus; I25.10 Atherosclerotic heart disease of native coronary artery without angina pectoris; I25.2 Old myocardial infarction; J44.9 Chronic obstructive pulmonary disease, unspecified; K21.9 Gastro-esophageal reflux disease without esophagitis; F12.90 Cannabis use, unspecified, uncomplicated; F15.90 Other stimulant use, unspecified, uncomplicated; F11.90 Opioid use, unspecified, uncomplicated; Z86.73 Personal history of transient ischemic attack (TIA), and cerebral infarction without residual deficits; Z79.899 Other long term (current) drug therapy
CPT/HCPCS: 99283

== ENCOUNTER 2024-07-22 10:05 | Inpatient (IN) | payer MEDICAID ==
[~2024-07-22] VITALS: Ht 165.1 cm; Wt 79.5 kg
[~2024-07-22 10:05] MED LIST changes: -AMOX500C2 PO
[2024-07-22 10:47] LABS: EOSINOPHILS # (AUTO) 0.1 X10'3 (0-0.9); HEMOGLOBIN 15.2 g/dl (12.0-16.0); MONOCYTES # (AUTO) 0.5 X10'3 (0-0.9); NEUTROPHILS % (AUTO) 64.7 % (42-75)
[2024-07-22 10:50] LABS: BASOPHILS % (AUTO) 0.4 % (0-1); LYMPHOCYTES # (AUTO) 1.6 X10'3 (1.1-4.8); LYMPHOCYTES % (AUTO) 25.5 % (21-51); MEAN CORPUSCULAR HEMOGLOBIN 29.8 PG (27.0-31.0); MEAN CORPUSCULAR HGB CONC 33.8 g/dL (33.0-36.5); MEAN PLATELET VOLUME 9.8 FL (7.4-10.4); MONOCYTES % (AUTO) 7.4 % (2-12); PLATELET COUNT 234 X10'3 (140-440); RED BLOOD COUNT 5.12 X10'6 (4.20-5.60); RED CELL DISTRIBUTION WIDTH 13.7 % (11.5-14.5); WHITE BLOOD COUNT 6.2 X10'3 (4.5-11.0)
[2024-07-22 11:02] LABS: ALANINE AMINOTRANSFERASE 18 U/L (12-78); ALBUMIN 3.8 G/DL (3.4-5.0); ALBUMIN/GLOBULIN RATIO 1.2 (1.1-1.5); ALKALINE PHOSPHATASE 95 IU/L (46-116); ANION GAP 6 (8-16); ASPARTATE AMINO TRANSFERASE 24 U/L (10-37); BILIRUBIN,TOTAL 0.3 MG/DL (0.1-1.0); BLOOD UREA NITROGEN 10 MG/DL (7-18); BUN/CREATININE RATIO 7.9 (10.0-20.0); CALCIUM 8.8 MG/DL (8.5-10.1); CHLORIDE 102 MMOL/L (99-107); CREATININE 1.27 MG/DL (0.40-0.90); GLUCOSE 98 MG/DL (70-104); SODIUM 134 MMOL/L (135-145); TOTAL CARBON DIOXIDE 26.5 MMOL/L (24-32); TOTAL PROTEIN 7.1 G/DL (6.4-8.2); eCRCL 42 ML/MIN; eGFR 48 ML/MIN
[2024-07-22 11:04] LABS: INR 1.1 INR; PROTHROMBIN TIME 11.7 SECONDS (9.0-12.0)
[2024-07-22 11:10] LABS: PRO BRAIN NATRIURETIC PEPTIDE 271 PG/ML (0-125)
[2024-07-22] MEDS: aspirin 81mg, enteric-coated 1 TAB TABLET.DR PO ONE (12:39)
[2024-07-22] MEDS: nitroGLYCERIN 0.4mg SUBLingual tab SL ONE (12:39)
[2024-07-22] MEDS ORDERED: magnesium hydroxide 30ml (MOM) UD suspension PO PRN (12:55)
[2024-07-22] MEDS ORDERED: magnesium sulf-water 2g/50mL 50 ML IV PRN (12:55)
[2024-07-22] MEDS ORDERED: heparin 10,000 units/1 ML INJ IV PRN (12:55)
[2024-07-22] MEDS ORDERED: mag hydrox/Alum hydrox/simeth 30ml oral suspension PO PRN (12:55)
[2024-07-22] MEDS ORDERED: potassium Cl 20 mEq SR tablet PO PRN ×2 (12:55)
[2024-07-22] MEDS ORDERED: magnesium sulf-water 4G/100mL 100 ML IV PRN (12:55)
[2024-07-22] MEDS ORDERED: acetaminophen 325mg tablet PO PRN (12:55)
[2024-07-22] MEDS ORDERED: albuterol 2.5 MG/3 ML nebule NEB PRN (12:55)
[2024-07-22] MEDS ORDERED: ondansetron/PF 4mg/2ml inj IV PRN (12:55)
[2024-07-22] MEDS ORDERED: potassium Cl 40MEQ/1/2NS 520ml 520 ML IV PRN (12:55)
[2024-07-22] MEDS: ipratropium/albuterol 3ml nebule NEB PRN (12:56)
[2024-07-22 13:02] VITALS: PULSE 68; RESP 16; O2SAT 96
[2024-07-22 13:08] VITALS: PULSE 64; RESP 16; O2SAT 99
[2024-07-22] MEDS: heparin 10,000 units/1 ML INJ IV ONE (13:51)
[2024-07-22] MEDS: heparin 25,000 UNIT/250ml bag 250 ML IV PRN (13:52)
[2024-07-22] MEDS: MESSAGE TO NURSING IV ONE ×2 (13:52→22:27)
[2024-07-22 14:51] LABS: BASOPHILS % (AUTO) 0.4 % (0-1); EOSINOPHILS # (AUTO) 0.2 X10'3 (0-0.9); EOSINOPHILS % (AUTO) 2.7 % (0-6); HEMATOCRIT 43.5 % (35.0-45.0); HEMOGLOBIN 14.5 g/dl (12.0-16.0); LYMPHOCYTES # (AUTO) 2.2 X10'3 (1.1-4.8); LYMPHOCYTES % (AUTO) 26.2 % (21-51); MEAN CORPUSCULAR HEMOGLOBIN 29.4 PG (27.0-31.0); MEAN CORPUSCULAR HGB CONC 33.2 g/dL (33.0-36.5); MEAN CORPUSCULAR VOLUME 88.5 FL (78-98); MEAN PLATELET VOLUME 10.3 FL (7.4-10.4); MONOCYTES # (AUTO) 0.6 X10'3 (0-0.9); MONOCYTES % (AUTO) 6.8 % (2-12); NEUTROPHILS # (AUTO) 5.4 X10'3 (1.8-7.7); NEUTROPHILS % (AUTO) 63.9 % (42-75); PLATELET COUNT 233 X10'3 (140-440); RED BLOOD COUNT 4.92 X10'6 (4.20-5.60); RED CELL DISTRIBUTION WIDTH 13.7 % (11.5-14.5); WHITE BLOOD COUNT 8.5 X10'3 (4.5-11.0)
[2024-07-22 17:09] LABS: URINE AMPHETAMINE SCREEN NEGATIVE (Neg); URINE BARBITUATE SCREEN NEGATIVE (Neg); URINE BENZODIAZEPINES SCREEN NEGATIVE (Neg); URINE CANNABINOID SCREEN POSITIVE (Neg); URINE COCAINE SCREEN NEGATIVE (Neg); URINE METHADONE SCREEN POSITIVE (Neg); URINE OPIATE SCREEN NEGATIVE (Neg); URINE PHENCYCLIDINE SCREEN NEGATIVE (Neg)
[2024-07-22] MEDS: atorvastatin 20mg tablet PO ONE (19:44)
[2024-07-22] MEDS: metoprolol tartrate 50mg tablet PO ONE (19:44)
[2024-07-22] MEDS: docusate sod 100mg capsule PO SCH (20:00)
[2024-07-22] MEDS: K and/or MAG REPLACEMENT MC SCH (20:00)
[2024-07-22] MEDS: LORazepam 0.5 MG tablet PO STA (20:18)
[2024-07-22 21:39] VITALS: RESP 20; O2SAT 98
[2024-07-22 22:00] VITALS: BP 140/83; PULSE 64; RESP 16; TEMP 97.2; O2SAT 98
[2024-07-23] VITALS (20 sets, daily range): BP systolic 102–144; BP diastolic 64–91; PULSE 59–82; RESP 12–20; TEMP 97.4–98.4; O2SAT 95–100
[2024-07-23 00:23] LABS: CHOL/HDL RATIO 3.5 (0.00-4.99); CHOLESTEROL 209 MG/DL (0-200); HDL CHOLESTEROL 59 MG/DL (35-60); LDL CHOLESTEROL 124 MG/DL (50-100); TRIGLYCERIDES 97 MG/DL (20-135)
[2024-07-23] MEDS: MESSAGE TO NURSING IV ONE ×3 (01:28→17:16)
[2024-07-23] MEDS ORDERED: ATOR20TA PO (05:38)
[2024-07-23] MEDS ORDERED: CARV3.1289 PO (05:40)
[2024-07-23] MEDS ORDERED: GABA-1405 PO (05:41)
[2024-07-23] MEDS ORDERED: FURO-150 PO (05:43)
[2024-07-23] MEDS ORDERED: ALB0.5UD IH (05:44)
[2024-07-23 07:22] LABS: BASOPHILS % (AUTO) 0.6 % (0-1); EOSINOPHILS # (AUTO) 0.2 X10'3 (0-0.9); EOSINOPHILS % (AUTO) 3.4 % (0-6); HEMATOCRIT 42.6 % (35.0-45.0); HEMOGLOBIN 14.2 g/dl (12.0-16.0); LYMPHOCYTES # (AUTO) 2.3 X10'3 (1.1-4.8); LYMPHOCYTES % (AUTO) 32.4 % (21-51); MEAN CORPUSCULAR HEMOGLOBIN 29.3 PG (27.0-31.0); MEAN CORPUSCULAR HGB CONC 33.5 g/dL (33.0-36.5); MEAN CORPUSCULAR VOLUME 87.5 FL (78-98); MONOCYTES # (AUTO) 0.6 X10'3 (0-0.9); NEUTROPHILS # (AUTO) 3.9 X10'3 (1.8-7.7); NEUTROPHILS % (AUTO) 54.6 % (42-75); PLATELET COUNT 209 X10'3 (140-440); RED BLOOD COUNT 4.86 X10'6 (4.20-5.60); RED CELL DISTRIBUTION WIDTH 13.5 % (11.5-14.5); WHITE BLOOD COUNT 7.2 X10'3 (4.5-11.0)
[2024-07-23 08:14] LABS: ALANINE AMINOTRANSFERASE 15 U/L (12-78); ALBUMIN 3.4 G/DL (3.4-5.0); ALBUMIN/GLOBULIN RATIO 1.1 (1.1-1.5); ALKALINE PHOSPHATASE 84 IU/L (46-116); ANION GAP 5 (8-16); ASPARTATE AMINO TRANSFERASE 43 U/L (10-37); BILIRUBIN,TOTAL 0.3 MG/DL (0.1-1.0); BLOOD UREA NITROGEN 17 MG/DL (7-18); BUN/CREATININE RATIO 15.2 (10.0-20.0); CALCIUM 8.6 MG/DL (8.5-10.1); CHLORIDE 102 MMOL/L (99-107); CREATININE 1.12 MG/DL (0.40-0.90); GLUCOSE 88 MG/DL (70-104); POTASSIUM 4.2 MMOL/L (3.5-5.1); SODIUM 134 MMOL/L (135-145); TOTAL CARBON DIOXIDE 27.4 MMOL/L (24-32); TOTAL PROTEIN 6.6 G/DL (6.4-8.2); eCRCL 63 ML/MIN; eGFR 55 ML/MIN
[2024-07-23] MEDS ORDERED: LIDOcaine 1% (10mg/ml) 2ml vial ONE ×2 (09:00→09:49)
[2024-07-23] MEDS ORDERED: nitroGLYCERIN 500mcg/5mL D5W 5 ML IV ONE (09:01)
[2024-07-23] MEDS ORDERED: midazolam 1 mg/ML 2ml injection ONE (09:01)
[2024-07-23] MEDS ORDERED: verapamil 2.5 mg/ml inj IV ONE (09:01)
[2024-07-23] MEDS ORDERED: heparin 1,000unit/ml 10ml vial 10 ML ONE (09:01)
[2024-07-23] MEDS ORDERED: fentaNYL/PF 50MCG/1 ML 2ML syringe ONE (09:01)
[2024-07-23] MEDS ORDERED: iohexol 350MG/ML 100ml bottle IV ONE (09:01)
[2024-07-23] MEDS ORDERED: iohexol 350 MG/ML 50ML vial IV ONE (09:01)
[2024-07-23] MEDS: methadone 10mg tablet PO SCH (10:37)
[2024-07-23] MEDS ORDERED: proCHLORperazine 10 MG/2 ml inj IV PRN (11:00)
[2024-07-23] MEDS ORDERED: ondansetron/PF 4mg/2ml inj IV PRN (11:00)
[2024-07-23] MEDS: warfarin 10mg tablet PO ONE ×2 (11:20→19:51)
[2024-07-23] MEDS: ipratropium/albuterol 3ml nebule NEB PRN (13:14)
[2024-07-23] MEDS: gabapentin 300mg capsule PO SCH (16:37)
[2024-07-23 16:42] LABS: INR 1.1 INR; PROTHROMBIN TIME 11.6 SECONDS (9.0-12.0)
[2024-07-23] MEDS: carVEDilol 3.125mg tablet PO SCH (19:49)
[2024-07-23] MEDS: enoxaparin 80mg/0.8ml syringe SUBCUT SCH (19:50)
[2024-07-23] MEDS: HYDROcodone/acetaminophen 5mg/325mg tablet PO PRN (19:50)
[2024-07-24] VITALS (8 sets, daily range): BP systolic 102–116; BP diastolic 75–87; PULSE 67–85; RESP 13–20; TEMP 97.3–98.3; O2SAT 96–100
[2024-07-24] MEDS: atorvastatin 20mg tablet PO SCH (07:40)
[2024-07-24 07:58] LABS: EOSINOPHILS # (AUTO) 0.2 X10'3 (0-0.9); HEMOGLOBIN 14.3 g/dl (12.0-16.0); MEAN CORPUSCULAR VOLUME 88.7 FL (78-98); MONOCYTES # (AUTO) 0.6 X10'3 (0-0.9); WHITE BLOOD COUNT 6.2 X10'3 (4.5-11.0)
[2024-07-24 08:01] LABS: BASOPHILS % (AUTO) 0.6 % (0-1); EOSINOPHILS % (AUTO) 3.6 % (0-6); HEMATOCRIT 43.3 % (35.0-45.0); LYMPHOCYTES # (AUTO) 2.3 X10'3 (1.1-4.8); LYMPHOCYTES % (AUTO) 37.3 % (21-51); MEAN CORPUSCULAR HEMOGLOBIN 29.3 PG (27.0-31.0); MEAN CORPUSCULAR HGB CONC 33.1 g/dL (33.0-36.5); MEAN PLATELET VOLUME 9.9 FL (7.4-10.4); NEUTROPHILS # (AUTO) 3.1 X10'3 (1.8-7.7); NEUTROPHILS % (AUTO) 49.5 % (42-75); PLATELET COUNT 212 X10'3 (140-440); RED BLOOD COUNT 4.89 X10'6 (4.20-5.60); RED CELL DISTRIBUTION WIDTH 13.7 % (11.5-14.5)
[2024-07-24 08:05] LABS: INR 1.1 INR; PROTHROMBIN TIME 11.1 SECONDS (9.0-12.0)
[2024-07-24 08:25] LABS: ALANINE AMINOTRANSFERASE 16 U/L (12-78); ALBUMIN 3.2 G/DL (3.4-5.0); ALKALINE PHOSPHATASE 78 IU/L (46-116); ANION GAP 4 (8-16); ASPARTATE AMINO TRANSFERASE 31 U/L (10-37); BILIRUBIN,TOTAL 0.2 MG/DL (0.1-1.0); BLOOD UREA NITROGEN 14 MG/DL (7-18); BUN/CREATININE RATIO 12.3 (10.0-20.0); CALCIUM 8.8 MG/DL (8.5-10.1); CHLORIDE 106 MMOL/L (99-107); CREATININE 1.14 MG/DL (0.40-0.90); GLUCOSE 90 MG/DL (70-104); MAGNESIUM 2.1 MG/DL (1.5-2.4); POTASSIUM 4.8 MMOL/L (3.5-5.1); SODIUM 139 MMOL/L (135-145); TOTAL CARBON DIOXIDE 28.7 MMOL/L (24-32); TOTAL PROTEIN 6.4 G/DL (6.4-8.2); eCRCL 62 ML/MIN; eGFR 54 ML/MIN
[2024-07-24] MEDS ORDERED: warfarin 5mg tablet PO ONE (21:00)
[2024-07-25] VITALS (7 sets, daily range): BP systolic 106–140; BP diastolic 80–84; PULSE 55–74; RESP 16–19; TEMP 97.6–98.3; O2SAT 96–99
[2024-07-25] MEDS: warfarin 5mg tablet PO SCH (00:08)
[2024-07-25 08:21] LABS: BASOPHILS % (AUTO) 0.5 % (0-1); EOSINOPHILS # (AUTO) 0.2 X10'3 (0-0.9); LYMPHOCYTES # (AUTO) 2.2 X10'3 (1.1-4.8); MONOCYTES # (AUTO) 0.6 X10'3 (0-0.9)
[2024-07-25 08:24] LABS: EOSINOPHILS % (AUTO) 3.5 % (0-6); HEMATOCRIT 45.4 % (35.0-45.0); HEMOGLOBIN 15.1 g/dl (12.0-16.0); LYMPHOCYTES % (AUTO) 34.1 % (21-51); MEAN CORPUSCULAR HEMOGLOBIN 29.3 PG (27.0-31.0); MEAN CORPUSCULAR HGB CONC 33.3 g/dL (33.0-36.5); MEAN PLATELET VOLUME 10.3 FL (7.4-10.4); MONOCYTES % (AUTO) 9.1 % (2-12); NEUTROPHILS # (AUTO) 3.4 X10'3 (1.8-7.7); NEUTROPHILS % (AUTO) 52.8 % (42-75); PLATELET COUNT 235 X10'3 (140-440); RED BLOOD COUNT 5.16 X10'6 (4.20-5.60); RED CELL DISTRIBUTION WIDTH 13.6 % (11.5-14.5); WHITE BLOOD COUNT 6.5 X10'3 (4.5-11.0)
[2024-07-25 08:27] LABS: INR 1.2 INR; PROTHROMBIN TIME 12.8 SECONDS (9.0-12.0)
[2024-07-25 08:36] LABS: ALANINE AMINOTRANSFERASE 14 U/L (12-78); ALBUMIN 3.6 G/DL (3.4-5.0); ALBUMIN/GLOBULIN RATIO 1.1 (1.1-1.5); ALKALINE PHOSPHATASE 81 IU/L (46-116); ANION GAP 4 (8-16); ASPARTATE AMINO TRANSFERASE 26 U/L (10-37); BILIRUBIN,TOTAL 0.2 MG/DL (0.1-1.0); BLOOD UREA NITROGEN 15 MG/DL (7-18); BUN/CREATININE RATIO 12.6 (10.0-20.0); CALCIUM 8.9 MG/DL (8.5-10.1); CHLORIDE 103 MMOL/L (99-107); CREATININE 1.19 MG/DL (0.40-0.90); GLUCOSE 89 MG/DL (70-104); MAGNESIUM 2.1 MG/DL (1.5-2.4); POTASSIUM 4.3 MMOL/L (3.5-5.1); SODIUM 138 MMOL/L (135-145); TOTAL CARBON DIOXIDE 31.4 MMOL/L (24-32); eCRCL 59 ML/MIN; eGFR 52 ML/MIN
[2024-07-25] MEDS: HYDROcodone/acetaminophen 10/325mg tab PO PRN (11:58)
[2024-07-25] MEDS ORDERED: warfarin 5mg tablet PO SCH (21:00)
[2024-07-25] MEDS ORDERED: warfarin 10mg tablet PO SCH (21:00)
[2024-07-26] VITALS (9 sets, daily range): BP systolic 93–127; BP diastolic 68–92; PULSE 59–94; RESP 13–18; TEMP 97–98.4; O2SAT 96–100
[2024-07-26 06:21] LABS: INR 1.8 INR; PROTHROMBIN TIME 18.4 SECONDS (9.0-12.0)
[2024-07-26 06:24] LABS: BASOPHILS % (AUTO) 0.7 % (0-1); EOSINOPHILS # (AUTO) 0.3 X10'3 (0-0.9); EOSINOPHILS % (AUTO) 4.3 % (0-6); HEMATOCRIT 40.9 % (35.0-45.0); HEMOGLOBIN 13.6 g/dl (12.0-16.0); LYMPHOCYTES # (AUTO) 2.3 X10'3 (1.1-4.8); LYMPHOCYTES % (AUTO) 38.1 % (21-51); MEAN CORPUSCULAR HEMOGLOBIN 29.3 PG (27.0-31.0); MEAN CORPUSCULAR HGB CONC 33.3 g/dL (33.0-36.5); MEAN CORPUSCULAR VOLUME 88.1 FL (78-98); MONOCYTES # (AUTO) 0.6 X10'3 (0-0.9); MONOCYTES % (AUTO) 10.1 % (2-12); NEUTROPHILS # (AUTO) 2.8 X10'3 (1.8-7.7); NEUTROPHILS % (AUTO) 46.8 % (42-75); PLATELET COUNT 201 X10'3 (140-440); RED BLOOD COUNT 4.64 X10'6 (4.20-5.60); RED CELL DISTRIBUTION WIDTH 13.4 % (11.5-14.5)
[2024-07-26 06:25] LABS: ALANINE AMINOTRANSFERASE 16 U/L (12-78); ALBUMIN 3.1 G/DL (3.4-5.0); ALKALINE PHOSPHATASE 70 IU/L (46-116); ANION GAP 5 (8-16); ASPARTATE AMINO TRANSFERASE 19 U/L (10-37); BILIRUBIN,TOTAL 0.2 MG/DL (0.1-1.0); BLOOD UREA NITROGEN 20 MG/DL (7-18); BUN/CREATININE RATIO 17.1 (10.0-20.0); CALCIUM 8.5 MG/DL (8.5-10.1); CHLORIDE 107 MMOL/L (99-107); CREATININE 1.17 MG/DL (0.40-0.90); GLUCOSE 99 MG/DL (70-104); POTASSIUM 4.5 MMOL/L (3.5-5.1); SODIUM 139 MMOL/L (135-145); TOTAL CARBON DIOXIDE 27.3 MMOL/L (24-32); TOTAL PROTEIN 6.1 G/DL (6.4-8.2); eCRCL 60 ML/MIN; eGFR 53 ML/MIN
[2024-07-27 02:00] VITALS: BP 96/54; PULSE 63; RESP 17; TEMP 98; O2SAT 98
[2024-07-27 06:00] VITALS: BP 113/79; PULSE 75; RESP 14; TEMP 96.8; O2SAT 100
[2024-07-27 07:01] LABS: BASOPHILS % (AUTO) 0.5 % (0-1); EOSINOPHILS # (AUTO) 0.3 X10'3 (0-0.9); EOSINOPHILS % (AUTO) 3.5 % (0-6); HEMATOCRIT 42.6 % (35.0-45.0); HEMOGLOBIN 14.4 g/dl (12.0-16.0); LYMPHOCYTES # (AUTO) 2.2 X10'3 (1.1-4.8); LYMPHOCYTES % (AUTO) 27.1 % (21-51); MEAN CORPUSCULAR HEMOGLOBIN 29.9 PG (27.0-31.0); MEAN CORPUSCULAR HGB CONC 33.9 g/dL (33.0-36.5); MEAN CORPUSCULAR VOLUME 88.4 FL (78-98); MEAN PLATELET VOLUME 10.2 FL (7.4-10.4); MONOCYTES # (AUTO) 0.7 X10'3 (0-0.9); MONOCYTES % (AUTO) 8.9 % (2-12); NEUTROPHILS # (AUTO) 4.8 X10'3 (1.8-7.7); PLATELET COUNT 211 X10'3 (140-440); RED BLOOD COUNT 4.82 X10'6 (4.20-5.60); RED CELL DISTRIBUTION WIDTH 13.6 % (11.5-14.5); WHITE BLOOD COUNT 8.1 X10'3 (4.5-11.0)
[2024-07-27 07:15] LABS: PROTHROMBIN TIME 43.6 SECONDS (9.0-12.0)
[2024-07-27 07:17] LABS: ALANINE AMINOTRANSFERASE 15 U/L (12-78); ALBUMIN 3.3 G/DL (3.4-5.0); ALBUMIN/GLOBULIN RATIO 1.1 (1.1-1.5); ALKALINE PHOSPHATASE 70 IU/L (46-116); ANION GAP 4 (8-16); ASPARTATE AMINO TRANSFERASE 27 U/L (10-37); BILIRUBIN,TOTAL 0.2 MG/DL (0.1-1.0); BLOOD UREA NITROGEN 16 MG/DL (7-18); BUN/CREATININE RATIO 13.3 (10.0-20.0); CALCIUM 8.8 MG/DL (8.5-10.1); CHLORIDE 104 MMOL/L (99-107); GLUCOSE 92 MG/DL (70-104); MAGNESIUM 2.1 MG/DL (1.5-2.4); POTASSIUM 4.5 MMOL/L (3.5-5.1); SODIUM 138 MMOL/L (135-145); TOTAL CARBON DIOXIDE 29.8 MMOL/L (24-32); TOTAL PROTEIN 6.4 G/DL (6.4-8.2); eCRCL 59 ML/MIN; eGFR 51 ML/MIN
[2024-07-27 08:00] VITALS: RESP 14; O2SAT 100
[2024-07-27 08:14] LABS: INR 4.7 INR
[2024-07-27] MEDS ORDERED: WARF-55 PO (08:57)
[2024-07-27] MEDS ORDERED: DOL10T PO (08:57)
[2024-07-27 09:48] VITALS: PULSE 74; RESP 16; O2SAT 100
[2024-07-27 09:54] VITALS: RESP 17
== END 2024-07-27 12:55 | disposition home or self-care (01) | DRG 190 ==
LOC: ER 10:06 → ED HOLD 13:00 → PCU 3S 21:30
PROVIDERS: ADMIT Family Medicine; ATTEND Family Medicine
PROC: 4A023N7 Measurement of Cardiac Sampling and Pressure, Left Heart, Percutaneous Approach (ICD-10-PCS; principal; 2024-07-23)
PROC: B2111ZZ Fluoroscopy of Multiple Coronary Arteries using Low Osmolar Contrast (ICD-10-PCS; 2024-07-23)
DX: I21.4 Non-ST elevation (NSTEMI) myocardial infarction (principal); Z95.2 Presence of prosthetic heart valve; F11.10 Opioid abuse, uncomplicated; F17.210 Nicotine dependence, cigarettes, uncomplicated; N28.9 Disorder of kidney and ureter, unspecified; J44.9 Chronic obstructive pulmonary disease, unspecified; F15.10 Other stimulant abuse, uncomplicated; K21.9 Gastro-esophageal reflux disease without esophagitis; G43.909 Migraine, unspecified, not intractable, without status migrainosus; F12.90 Cannabis use, unspecified, uncomplicated; I25.10 Atherosclerotic heart disease of native coronary artery without angina pectoris; I25.2 Old myocardial infarction; Z79.899 Other long term (current) drug therapy; Z86.73 Personal history of transient ischemic attack (TIA), and cerebral infarction without residual deficits; Z86.79 Personal history of other diseases of the circulatory system; Z82.49 Family history of ischemic heart disease and other diseases of the circulatory system
CPT/HCPCS: 36415; 71045; 76937; 80053; 80061; 80305; 83605; 83735; 83880; 84484; 85025; 85347; 85610; 85651; 85730; 87040; 87081; 93005; 93306; 93458; 94640; 94760; 99152; 99153; 99285; A6258; C1725; C1894; G0378; J1644; J1650; J2003; J2250; J3010; J3490; J7030; Q9967

== ENCOUNTER 2024-08-01 08:41 | Outpatient (CLI) | payer MEDICAID ==
[~2024-08-01 08:41] MED LIST changes: -ACET-812 PO; +ALB0.5UD IH; +ATOR20TA PO; +CARV3.1289 PO; +DOL10T PO; +FURO-150 PO; +GABA-1405 PO; -MELO-100 PO; -ONDA4TAB6 PO; -ONDA8TAB9 PO; -PHEN-824 PO; +WARF-55 PO; -XYL25J TOP
[2024-08-01 09:07] LABS: INR 2.1 INR; PROTHROMBIN TIME 20.6 SECONDS (9.0-12.0)
== END 2024-08-01 23:59 | disposition home or self-care (01) ==
LOC: LAB 08:41
PROVIDERS: ATTEND Family Medicine
DX: Z79.01 Long term (current) use of anticoagulants (principal)
CPT/HCPCS: 36415; 85610